=== PATIENT | male | born 1930 | race Caucasian/White ===

== ENCOUNTER 2017-08-15 23:55 | Emergency (ER) | payer BC ==
[2017-08-16 02:30] LABS: #Eosinphils 0.1 thou/uL (0.0-0.7); #Lymphocytes 0.9 thou/uL (1.20-3.40); #Monocytes 0.6 thou/uL (0.11-0.59); #Neutrophils 6.4 thou/uL (1.40-6.50); %Basophils 0.1 % (0.0-1.0); %Eosinophils 0.8 % (0.0-10.0); %Lymphocytes 10.8 % (21.0-51.0); %Monocytes 8.1 % (0.0-10.0); Hematocrit 35.5 % (42.0-52.0); Mean Platelet Volume 7.2 fL (7.4-10.4); Red Blood Cell (RBC) Count 3.59 mill/uL (4.70-6.10); White Blood Cell (WBC) Count 7.9 thou/uL (4.8-10.8)
[2017-08-16 02:51] LABS: ALT (SGPT) 13 U/L (8-55); AST (SGOT) 17 U/L (5-34); Alkaline Phosphatase 87 U/L (40-150); Anion Gap 10 mmol/L (10-20); BUN (Urea Nitrogen) 22 mg/dL (8.4-25.7); Bilirubin, Total 0.8 mg/dL (0.2-1.2); Calc. Creatinine Clearance 0 mL/min (70-130); Calcium 9.3 mg/dL (7.8-10.44); Carbon Dioxide 26 mmol/L (23-31); Chloride 96 mmol/L (98-107); Estimated GFR-MDRD 56; Globulin 2.8 g/dL (2.4-3.5); Protein, Total 6.7 g/dL (5.8-8.1)
== END 2017-08-16 02:37 | disposition home or self-care (01) ==
LOC: ERS 23:55
DX: R51 Headache (principal); I10 Essential (primary) hypertension; Z79.82 Long term (current) use of aspirin; Z79.899 Other long term (current) drug therapy
CPT/HCPCS: 36415; 80053; 85025; 93005

== ENCOUNTER 2018-03-13 14:41 | Outpatient (CLI) | payer BC | END 2018-03-13 14:42 | disposition home or self-care (01) | LOC: BICRAD 14:41 | DX: C43.9 Malignant melanoma of skin, unspecified (principal) | CPT/HCPCS: 71046 ==

== ENCOUNTER 2018-04-01 09:11 | Outpatient (CLI) | payer BC ==
--- NOTE | 2018-04-01 11:58 | CT ---
CT CHEST WITH CONTRAST: History: Recently removed pulmonary nodule. Comparison: 04-01-14 FINDINGS: Noncontrast enhanced CT images of the chest were obtained. Coronal reconstructed images performed. Images demonstrate a large hiatal hernia, significantly larger than on the previous comparison exam. Innumerable tiny nodular densities seen in the upper and lower lobes bilaterally, most pronounced in the lung bases bilaterally. No definite evidence of mediastinal lymphadenopathy seen. Some coronal artery calcifications are seen . No evidence of pneumonia or pneumothorax is seen. IMPRESSION: 1. Numerous tiny pulmonary parenchymal nodules, too small to characterize, some of which are calcifie d. 2. Enlarging hiatal hernia. POS: [facility]
== END 2018-04-01 09:12 | disposition home or self-care (01) ==
LOC: CT 09:11
PROVIDERS: ATTEND Internal Medicine
DX: R91.1 Solitary pulmonary nodule (principal); R91.8 Other nonspecific abnormal finding of lung field; K44.9 Diaphragmatic hernia without obstruction or gangrene
CPT/HCPCS: 71250

== ENCOUNTER 2019-03-29 07:53 | Outpatient (CLI) | payer BC ==
--- NOTE | 2019-03-29 11:09 | ULT ---
RIGHT UPPER QUADRANT ULTRASOUND: INDICATIONS: History of right upper quadrant pain. COMPARISON: None. FINDINGS: Overlying bowel gas slightly limits image detail. No focal hepatic lesion is identified. The pancre as is largely obscured. There is appropriate flow within the main portal vein. The visualized gallb ladder is normal appearing. No sonographic Cameron sign is reported. The common bile duct measures 1 .2 mm. The right kidney measures 8.9 cm in length without evidence of focal renal lesion or hydronep hrosis. IMPRESSION: No definite acute sonographic abnormality seen within the right upper quadrant of the abdomen. POS: [facility]
== END 2019-03-29 07:54 | disposition home or self-care (01) ==
LOC: ULT 07:53
PROVIDERS: ATTEND Internal Medicine
DX: R10.11 Right upper quadrant pain (principal)
CPT/HCPCS: 76705

== ENCOUNTER 2020-01-24 14:00 | Outpatient (CLI) | payer BC ==
--- NOTE | 2020-01-24 14:53 | CT ---
CT Abdomen Pelvis WO Con History: Hematuria Comparison: CT abdomen and pelvis 2016 Findings: Numerous centrilobular nodules in both lower lobes, some of which are hyperdense. There is no nephroureterolithiasis or hydroureteronephrosis. No secondary evidence of a recently pass ed stone. Small fat-containing posterior right diaphragmatic hernia. Cyst within hepatic segment 2. Prostate is markedly enlarged. The appendix is visualized and is normal. Noncontrast evaluation of the spleen and pancreas are unremarkable. Moderate facet arthrosis lower haley mbar spine. No acute osseous abnormality. 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 Impression: 1. No nephroureterolithiasis or hydroureteronephrosis. No secondary evidence of a recently passed sto ne. 2. Marked prostatomegaly. 3. 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
== END 2020-01-24 14:01 | disposition home or self-care (01) ==
LOC: BICCT 14:00 → CT 14:01
PROVIDERS: ATTEND Urology
DX: R31.9 Hematuria, unspecified (principal); D17.71 Benign lipomatous neoplasm of kidney; N40.0 Benign prostatic hyperplasia without lower urinary tract symptoms
CPT/HCPCS: 74176